=== PATIENT | female | born 1985 | race African-American/Black ===

== ENCOUNTER 2016-04-15 08:03 | Emergency (ER) | payer SELFPAY ==
[~2016-04-15] VITALS: Ht 167.6 cm; Wt 129.5 kg
[~2016-04-15 08:03] MED LIST: FLEXERIL 1010 MG/TAB PO; IBU800 M1 PO; LORTAB 5/500 501 TAB PO; MOTRIN 800800 MG/TAB PO; NO HOME MEDICATIONS; NORCO 325 MG-51 TAB PO; PRENATAL1 TA5 PO; PRIL40 PO; ULTRAM 50MG TAB50 MG PO; ZOFRAN ODT4 MG PO; ZOFRAN8 MG PO; ZOMIG5 MG PO
[2016-04-15] MEDS ORDERED: BACTRIM DS 8001 TAB PO (08:32)
[2016-04-15 08:35] VITALS: BP 143/86; PULSE 95; TEMP 98.7
== END 2016-04-15 08:38 | disposition home or self-care (01) ==
LOC: COL.ER 08:03
DX: R21 Rash and other nonspecific skin eruption (principal)

== ENCOUNTER → 2016-07-18 | Outpatient (CLI) | payer OTHER ==
[~2016-07-18] MED LIST changes: +BACTRIM DS 8001 TAB PO
== END ==
LOC: COL.RAD 08:30
DX: N83.9 Noninflammatory disorder of ovary, fallopian tube and broad ligament, unspecified (principal)
CPT/HCPCS: Q9967

== ENCOUNTER 2016-12-07 14:18 | Emergency (ER) | payer SELFPAY ==
[~2016-12-07] VITALS: Ht 167.6 cm; Wt 127.3 kg
[2016-12-07 14:22] VITALS: BP 148/82; TEMP 97.4
[2016-12-07 15:46] LABS: BASO % 0.7 % (0.0-2.0); EOS # 0.2 (0.0-0.7); EOS % 3.2 % (0-4.0); GRAN # 2.8 (1.4-6.5); GRAN % 52.1 % (42.2-75.2); HEMATOCRIT 41.1 % (37.0-47.0); HEMOGLOBIN 13.3 g/dl (12.5-16.0); LYMPH % 36.9 % (20.0-51.0); MEAN CELL VOLUME 86 fl (80.0-100.0); MEAN CORPUSCULAR HEMOGLOBIN 28 pg (27.0-31.0); MEAN CORPUSCULAR HGB CONC 32 g/dl (33.0-37.0); MEAN PLATELET VOLUME 11.6 fl (7.4-10.4); MONO # 0.4 (0.1-0.6); MONO % 7.1 % (1.7-9.3); PLATELET COUNT 305 K/mm3 (130-400); RED BLOOD COUNT 4.76 M/mm3 (4.10-5.30); REDCELL DISTRIBUTION WIDTH-CV 13.2 % (11.5-14.5); WHITE BLOOD COUNT 5.4 K/mm3 (4.8-10.8)
[2016-12-07 15:50] LABS: ADJUSTED CALCIUM 8.8 mg/dL (8.4-10.2); ALBUMIN 4.2 gm/dL (3.5-5.0); BILIRUBIN,TOTAL 0.5 mg/dL (0.0-1.0); C-REACTIVE PROTEIN 1.4 mg/dL (0.0-0.9); CREATININE, serum 0.78 mg/dL (0.52-1.25); POTASSIUM 3.9 mmol/L (3.4-5.0); TOTAL PROTEIN 7.7 gm/dL (6.4-8.2)
[2016-12-07 16:08] LABS: PH 5 (5-8); SQUAMOUS EPITHELIAL 20-50 /hpf; URINE APPEARANCE Cloudy; URINE BACTERIA Rare /hpf; URINE BILIRUBIN Negative (NEGATIVE); URINE BLOOD 2+ (NEGATIVE); URINE COLOR Yellow; URINE GLUCOSE Negative (NEGATIVE); URINE KETONE Negative (NEGATIVE)
[2016-12-07 18:04] VITALS: PULSE 85
== END 2016-12-07 18:05 | disposition home or self-care (01) ==
LOC: COL.ER 14:18
PROVIDERS: Emergency Medicine
DX: R10.9 Unspecified abdominal pain (principal); F17.210 Nicotine dependence, cigarettes, uncomplicated; Z32.02 Encounter for pregnancy test, result negative
CPT/HCPCS: J1170; J2405; J7030; Q9967

== ENCOUNTER 2017-04-26 17:24 | Emergency (ER) | payer SELFPAY ==
[~2017-04-26] VITALS: Ht 172.7 cm; Wt 131.8 kg
[2017-04-26 17:26] VITALS: BP 134/85; PULSE 96; TEMP 98.1
[2017-04-26] MEDS ORDERED: CLEOCIN HCL300 MG PO (18:12)
== END 2017-04-26 18:25 | disposition home or self-care (01) ==
LOC: COL.ER 17:24
DX: J02.9 Acute pharyngitis, unspecified (principal); R59.0 Localized enlarged lymph nodes

== ENCOUNTER 2017-04-27 01:43 | Emergency (ER) | payer SELFPAY ==
[~2017-04-27] VITALS: Ht 172.7 cm; Wt 131.8 kg
[~2017-04-27 01:43] MED LIST changes: +CLEOCIN HCL300 MG PO
[2017-04-27 01:45] VITALS: TEMP 97.6
[2017-04-27 02:40] VITALS: BP 131/78; PULSE 78
== END 2017-04-27 02:40 | disposition home or self-care (01) ==
LOC: COL.ER 01:43
DX: R68.84 Jaw pain (principal)
CPT/HCPCS: J1885

== ENCOUNTER 2017-08-18 10:35 | Emergency (ER) | payer BC ==
[~2017-08-18] VITALS: Ht 175.3 cm; Wt 127.3 kg
[2017-08-18 10:47] VITALS: TEMP 98.5
[2017-08-18 11:28] LABS: BASO # 0.1 (0.0-0.2); BASO % 0.9 % (0.0-2.0); EOS # 0.1 (0.0-0.7); EOS % 2.4 % (0-4.0); GRAN # 3.1 (1.4-6.5); GRAN % 58.5 % (42.2-75.2); HEMATOCRIT 41.8 % (37.0-47.0); HEMOGLOBIN 13.3 g/dl (12.5-16.0); LYMPH # 1.7 (1.2-3.4); MEAN CELL VOLUME 86 fl (80.0-100.0); MEAN CORPUSCULAR HEMOGLOBIN 27 pg (27.0-31.0); MEAN CORPUSCULAR HGB CONC 32 g/dl (33.0-37.0); MEAN PLATELET VOLUME 10.8 fl (7.4-10.4); MONO # 0.3 (0.1-0.6); PLATELET COUNT 319 K/mm3 (130-400); RED BLOOD COUNT 4.85 M/mm3 (4.10-5.30); REDCELL DISTRIBUTION WIDTH-CV 13.2 % (11.5-14.5)
[2017-08-18 11:39] LABS: COLLECTION METHOD CLEAN CATCH
[2017-08-18 11:47] LABS: ACETAMINOPHEN < 10 ug/mL (10-30); ALCOHOL(ethanol),MEDICAL < 10 mg/dL; SALICYLATE < 1.0 mg/dL
[2017-08-18 11:50] LABS: MUCOUS Present /lpf; PH 5 (5-8); URINE APPEARANCE Clear; URINE BACTERIA None Seen /hpf; URINE BILIRUBIN Negative (NEGATIVE); URINE BLOOD 2+ (NEGATIVE); URINE COLOR Yellow; URINE GLUCOSE Negative (NEGATIVE); URINE KETONE Negative (NEGATIVE); URINE LEUKOCYTE ESTERASE Negative (NEGATIVE); URINE NITRATE Negative (NEGATIVE); URINE PROTEIN(semi-quant) Negative (NEGATIVE); URINE UROBILINOGEN Negative (NEGATIVE)
[2017-08-18] MEDS ORDERED: LEXAPRO 10MG10 MG PO (11:51)
[2017-08-18] MEDS ORDERED: IBU800 M1 PO (11:52)
[2017-08-18] MEDS ORDERED: ATARAX 25MG25 MG/TAB PO (11:52)
[2017-08-18] MEDS ORDERED: LAMICTAL 25MG T25 MG PO (11:53)
[2017-08-18 12:12] LABS: TRICYCLIC ANTIDEPRESS URINE NEGATIVE
[2017-08-18 13:52] LABS: ALBUMIN 3.8 gm/dL (3.5-5.0); BILIRUBIN,TOTAL 0.2 mg/dL (0.0-1.0); CALCIUM 9.2 mg/dL (8.4-10.2); CREATININE, serum 0.79 mg/dL (0.52-1.25); TOTAL PROTEIN 7.4 gm/dL (6.4-8.2)
[2017-08-18 15:13] VITALS: BP 144/84; PULSE 101
== END 2017-08-18 15:15 | disposition home or self-care (01) ==
LOC: COL.ER 10:35
PROVIDERS: Family Medicine; Physician Assistant
DX: T44.3X2A Poisoning by other parasympatholytics [anticholinergics and antimuscarinics] and spasmolytics, intentional self-harm, initial encounter (principal); R45.851 Suicidal ideations

== ENCOUNTER 2018-02-18 23:06 | Emergency (ER) | payer SELFPAY ==
[~2018-02-18] VITALS: Ht 172.7 cm; Wt 131.4 kg
[~2018-02-18 23:06] MED LIST changes: +ATARAX 25MG25 MG/TAB PO; +LAMICTAL 25MG T25 MG PO; +LEXAPRO 10MG10 MG PO
[2018-02-18 23:20] VITALS: TEMP 98.6
[2018-02-18] MEDS ORDERED: SEROQUEL 2525 MG/TAB (23:26)
[2018-02-18 23:46] LABS: COLLECTION METHOD CLEAN CATCH
[2018-02-18 23:53] LABS: MUCOUS Present /lpf; PH 5 (5-8); SQUAMOUS EPITHELIAL 0-2 /hpf; URINE APPEARANCE Clear; URINE BACTERIA None Seen /hpf; URINE BILIRUBIN Negative (NEGATIVE); URINE BLOOD 2+ (NEGATIVE); URINE COLOR Yellow; URINE GLUCOSE Negative (NEGATIVE); URINE KETONE Negative (NEGATIVE); URINE LEUKOCYTE ESTERASE Trace (NEGATIVE); URINE NITRATE Negative (NEGATIVE); URINE PROTEIN(semi-quant) 1+ (NEGATIVE)
[2018-02-19 01:54] VITALS: BP 126/80; PULSE 78
== END 2018-02-19 01:54 | disposition home or self-care (01) ==
LOC: COL.ER 23:06
PROVIDERS: Emergency Medicine
DX: N93.9 Abnormal uterine and vaginal bleeding, unspecified (principal)

== ENCOUNTER 2019-03-26 23:51 | Emergency (ER) | payer SELFPAY ==
[~2019-03-26] VITALS: Ht 175.3 cm; Wt 125.0 kg
[~2019-03-26 23:51] MED LIST changes: +SEROQUEL 2525 MG/TAB
[2019-03-26 23:57] VITALS: TEMP 97.9
[2019-03-27 00:42] LABS: BASO % 0.7 % (0.0-2.0); EOS # 0.1 (0.0-0.7); EOS % 2.5 % (0-4.0); GRAN # 3.4 (1.4-6.5); GRAN % 60.4 % (42.2-75.2); HEMATOCRIT 37.1 % (37.0-47.0); LYMPH # 1.7 (1.2-3.4); MEAN CELL VOLUME 86 fl (80.0-100.0); MEAN CORPUSCULAR HEMOGLOBIN 28 pg (27.0-31.0); MEAN CORPUSCULAR HGB CONC 32 g/dl (33.0-37.0); MEAN PLATELET VOLUME 10.9 fl (7.4-10.4); MONO # 0.4 (0.1-0.6); MONO % 7.4 % (1.7-9.3); PLATELET COUNT 310 K/mm3 (130-400); REDCELL DISTRIBUTION WIDTH-CV 13.2 % (11.5-14.5)
[2019-03-27 00:53] LABS: ALANINE AMINOTRANSFERASE 29 U/L (9-52); ALBUMIN 3.9 gm/dL (3.5-5.0); ALKALINE PHOSPHATASE 55 U/L (50-136); ANION GAP 6 mmol/L (7-16); AST,SGOT 33 U/L (15-37); BILIRUBIN,TOTAL 0.2 mg/dL (0.0-1.0); BLOOD UREA NITROGEN 14 mg/dL (7-17); CALCIUM 8.6 mg/dL (8.4-10.2); CARBON DIOXIDE 28 mmol/L (22-30); CHLORIDE 105 mmol/L (98-107); CREATININE, serum 0.95 (0.52-1.25); GLUCOSE 111 mg/dL (74-106); POTASSIUM 4.2 mmol/L (3.4-5.0); SODIUM 139 mmol/L (137-145)
[2019-03-27 01:10] LABS: TROPONIN-I < 0.012 ng/mL (0.000-0.035)
[2019-03-27] MEDS ORDERED: PROTONIX 40MG T40 MG PO (01:35)
[2019-03-27 01:53] VITALS: BP 146/84; PULSE 85
== END 2019-03-27 02:03 | disposition home or self-care (01) ==
LOC: COL.ER 23:51
PROVIDERS: Emergency Medicine
DX: K29.70 Gastritis, unspecified, without bleeding (principal); R07.9 Chest pain, unspecified; F31.9 Bipolar disorder, unspecified
CPT/HCPCS: C9113; J2060; J7030

== ENCOUNTER 2021-08-31 18:36 | Emergency (ER) | payer BC ==
[~2021-08-31] VITALS: Ht 167.6 cm; Wt 127.3 kg
[~2021-08-31 18:36] MED LIST changes: +PROTONIX 40MG T40 MG PO; -SEROQUEL 2525 MG/TAB; +SEROQUEL 2525 MG/TAB PO
[2021-08-31] MEDS ORDERED: ABILIFY5 MG PO (19:10)
[2021-08-31] MEDS ORDERED: CELEXA 20MG20 MG/TAB PO (19:10)
[2021-08-31 21:10] VITALS: BP 108/57; PULSE 87; TEMP 98.3
== END 2021-08-31 21:12 | disposition home or self-care (01) ==
LOC: COL.ER 18:36
DX: S09.90XA Unspecified injury of head, initial encounter (principal); W22.01XA Walked into wall, initial encounter
CPT/HCPCS: J1200; J2765; J7030